=== PATIENT | female | born 1975 | race Hispanic/Latino ===

== ENCOUNTER 2018-10-13 21:41 | Emergency (ER) | payer SELFPAY ==
[2018-10-13 22:32] LABS: APPEARANCE,URINE Clear (CLEAR); BILIRUBIN,URINE Negative (NEGATIVE); COLOR,URINE Yellow (YELLOW); GLUCOSE, URINE (UA) >=1000 mg/dL (NEGATIVE); KETONES,URINE Trace mg/dL (NEGATIVE); LEUKOCYTE ESTERASE ,URINE Negative (NEGATIVE); NITRATE,URINE Negative (NEGATIVE); OCCULT BLOOD,URINE Negative (NEGATIVE); PH,URINE 6.5 (5.0-8.0); PROTEIN,URINE Negative (NEGATIVE)
[2018-10-13 22:34] LABS: HCG,QUAL RESULT NEGATIVE (NEGATIVE)
[2018-10-13 22:53] LABS: BASOPHILS % (AUTO) 0.2 % (0.0-5.0); EOSINOPHILS % (AUTO) 1.1 % (0.0-8.0); HEMATOCRIT 43.6 % (36-48); LYMPHOCYTES % (AUTO) 24.9 % (21.0-51.0); MEAN CORPUSCULAR VOLUME 88.1 fL (79-99); MONOCYTES % (AUTO) 6.8 % (3.0-13.0); NUCLEATED RED BLOOD CELLS 0.1 % (0.0-0.19); PLATELET COUNT (AUTO) 210 K/uL (130-400); RED BLOOD CELL COUNT(AUTO) 4.95 MIL/uL (4.00-5.50); RED CELL DISTRIBUTION WIDTH 13.9 % (11.0-15.5); WHITE BLOOD COUNT (AUTO) 8.5 K/uL (4.8-10.8)
[2018-10-13] MEDS ORDERED: KETOROLAC TROMETHAMINE 30MG/ML ONE (22:55)
[2018-10-13 22:58] LABS: CREATININE 0.8 mg/dL (0.5-1.5); POTASSIUM 3.6 mmol/L (3.5-5.1)
[2018-10-13 23:01] LABS: BACTERIA,URINE Few /HPF (None Seen); RBC,URINE None Seen /HPF (0-1); WBC,URINE 0-1 /HPF (0-1)
[2018-10-13 23:01] LABS: PARTIAL THROMBOPLASTIN TIME 28.3 SEC (26.3-35.5); PROTHROMBIN TIME 10.5 SEC (9.6-11.6)
[2018-10-13 23:03] LABS: ALBUMIN 3.8 g/dL (3.5-5.0); BILIRUBIN,TOTAL 0.5 mg/dL (0.2-1.0); TOTAL PROTEIN, SERUM 7.9 g/dL (6.0-8.3)
[2018-10-14] MEDS ORDERED: TRAMADOL HCL 50 MG TABLET ONE (00:29)
[2018-10-14] MEDS ORDERED: KETOROLAC TROMETHAMINE 30MG/ML ONE (03:20)
== END 2018-10-14 04:43 | disposition home or self-care (01) ==
LOC: EDH 21:41
DX: S32.019A Unspecified fracture of first lumbar vertebra, initial encounter for closed fracture (principal); S20.221A Contusion of right back wall of thorax, initial encounter; S31.119A Laceration without foreign body of abdominal wall, unspecified quadrant without penetration into peritoneal cavity, initial encounter; E11.9 Type 2 diabetes mellitus without complications; Z98.890 Other specified postprocedural states; W10.8XXA Fall (on) (from) other stairs and steps, initial encounter; Y93.89 Activity, other specified; Y92.89 Other specified places as the place of occurrence of the external cause; Y99.8 Other external cause status
CPT/HCPCS: 36415; 74176; 76882; 80053; 81001; 81025; 82150; 82550; 83690; 85025; 85610; 85651; 85730; 86140; 93005; 96374; 99284; J1885 ×2

== ENCOUNTER 2024-07-01 11:55 | Emergency (ER) | payer SELFPAY ==
[~2024-07-01] VITALS: Ht 154.9 cm; Wt 81.6 kg
[2024-07-01] MEDS: acetaMINOPHEN WITH coDEINE 1 TAB TAB PO ONE (13:36)
[2024-07-01] MEDS ORDERED: LIDO1ADH71 TP (14:35)
[2024-07-01] MEDS ORDERED: ACET-2079 PO (14:44)
[2024-07-01 15:21] VITALS: BP 129/80; PULSE 70; RESP 14; O2SAT 100
== END 2024-07-01 15:32 | disposition home or self-care (01) ==
LOC: EDH 11:55
DX: S29.011A Strain of muscle and tendon of front wall of thorax, initial encounter (principal); E11.9 Type 2 diabetes mellitus without complications; Z79.899 Other long term (current) drug therapy; Z98.890 Other specified postprocedural states; X58.XXXA Exposure to other specified factors, initial encounter; Y93.89 Activity, other specified; Y92.89 Other specified places as the place of occurrence of the external cause; Y99.8 Other external cause status
CPT/HCPCS: 71101